=== PATIENT | male | born 1975 | race Caucasian/White ===

== ENCOUNTER 2024-03-10 15:08 | Emergency (ER) | payer OTHER ==
[~2024-03-10] VITALS: Ht 175.3 cm; Wt 95.9 kg
[~2024-03-10 15:08] MED LIST: ALEVE220 M1 PO; ASPIR LOW81 MG PO; CLONAZEPAM0.5 MG PO; IBUPROFEN800 MG PO; NEURONTIN300 M1 PO; OMEPRAZOLE40 MG PO; PAXIL20 M1 PO; ROBAXIN500 MG PO
[2024-03-10] MEDS ORDERED: PANTOPRAZOLE SO40 MG PO (15:17)
[2024-03-10 15:39] LABS: BASO # 0.02 K/mm3 (0.02-0.10); EOS # 0.05 K/mm3 (0.04-0.40); EOS % 0.5 % (0.0-4.0); HEMATOCRIT 48.6 % (42.0-52.0); HEMOGLOBIN 16.1 g/dL (13.5-18.0); LYMPH# 1.41 K/mm3 (1.50-4.00); MEAN CELL VOLUME 96 fl (78-100); MEAN CORPUSCULAR HEMOGLOBIN 32 pg (27-31); MEAN CORPUSCULAR HGB CONC 33 g/dL (33-37); MEAN PLATELET VOLUME 10.9 fl (7.4-10.4); MONO # 0.53 K/mm3 (0.20-0.80); NEU # 7.41 K/mm3 (1.40-6.50); PLATELET COUNT 198 K/mm3 (130-400); RED BLOOD COUNT 5.08 M/mm3 (4.20-5.60); WHITE BLOOD COUNT 9.4 K/mm3 (4.8-10.8)
[2024-03-10 15:46] LABS: ALBUMIN 4.2 g/dL (3.5-5.0)
[2024-03-10 15:47] LABS: CALCIUM 9.5 mg/dL (8.3-10.5)
[2024-03-10 15:49] LABS: TOTAL PROTEIN 6.7 g/dL (6.4-8.3)
[2024-03-10 15:50] LABS: TOTAL BILIRUBIN 0.5 mg/dL (0.2-1.2)
[2024-03-10] MEDS ORDERED: Iohexol 300 - 100 ML VIAL IV ONE (16:16)
[2024-03-10] MEDS ORDERED: Ketorolac 30 MG/ML VIAL IV ONE (16:30)
[2024-03-10 16:31] LABS: URINE WBC 0 /hpf (0-3)
[2024-03-10 16:47] LABS: URINE APPEARANCE CLEAR (CLEAR); URINE BILIRUBIN NEGATIVE (NEGATIVE); URINE BLOOD TRACE-INTACT (NEGATIVE); URINE COLOR YELLOW (YELLOW); URINE GLUCOSE NEGATIVE (NEGATIVE); URINE KETONE NEGATIVE (NEGATIVE); URINE LEUKOCYTE ESTERASE NEGATIVE (NEGATIVE); URINE NITRATE NEGATIVE (NEGATIVE); URINE PROTEIN(semi-quant) NEGATIVE (NEGATIVE)
[2024-03-10 17:13] VITALS: BP 137/96
== END 2024-03-10 17:25 | disposition home or self-care (01) ==
LOC: ED 15:08
PROVIDERS: Physician Assistant
DX: R10.32 Left lower quadrant pain (principal); R10.813 Right lower quadrant abdominal tenderness; M54.50 Low back pain, unspecified; R31.9 Hematuria, unspecified; R42 Dizziness and giddiness
CPT/HCPCS: J1885; Q9967